=== PATIENT | male | born 1980 | race Caucasian/White ===

== ENCOUNTER 2017-09-09 20:24 | Inpatient (IN) | payer OTHER ==
[~2017-09-09] VITALS: Ht 190.5 cm; Wt 128.0 kg
[~2017-09-09 20:24] MED LIST: ENAL20TA81 PO; LOMO PO; LORT5TAB PO; PROM25SU8 PO
[2017-09-09 20:26] VITALS: BP 185/106; PULSE 122; RESP 16; TEMP 98.5; O2SAT 98
[2017-09-09] MEDS ORDERED: SODIUM CHLOR 0.9% 1000 ML INJ 1,000 ML IV SCH (20:49)
[2017-09-09] MEDS ORDERED: MORPHINE SULFATE 4 MG/ML INJ IV PUSH ONE (21:00)
[2017-09-09] MEDS ORDERED: ONDANSETRON HCL 4 MG/2 ML VIAL IVP ONE (21:00)
[2017-09-09] MEDS ORDERED: SODIUM CHLORIDE 0.9% FLUSH 10 ML FLUSH IV FLUSH PRN (21:00)
--- NOTE | 2017-09-09 21:00 | PD ---
HPI Chief Complaint: Abdominal Pain Time Seen by Provider: 20:40 Travel History International Travel<30 days: No Contact w/Intl Traveler<30days: No Traveled to known affect area: No History of Present Illness HPI Patient is a 37 year old male who was sent to the ER for evaluation of post-op Day #1 fever/abdominal pains. Patient reports that he had an elective cholecystectomy yesterday by Dr. Cuevas around 9:30 AM yesterday. Patient reports that he was intubated for this procedure, reports that the only complication was that his gallbladder adhere to his liver. Reports that this procedure was performed laparoscopically. Patient reports that he went home after his procedures and felt fine. He reports that this afternoon around 1 PM , he took a shower and began to have flulike symptoms. Patient reports that he began to have right upper quadrant abdominal pain which we to his right shoulder , reports that he develop fevers around 6:30 PM today, reports that his MAXIMUM TEMPERATURE was 102. Patient did call his surgeon, he reviewed this case with Dr. Mendoza who is on-call for Dr. cuevas, recommended the patient come to the emergency room for evaluation. Patient reports that he did take Tylenol around 6:30 PM tonight for his fever. Patient at this time reports no chest pain or shortness of breath, patient reports increased pains to his right upper quadrant. Patient reports no nausea or vomiting with abdominal pain. Patient reports that he was able to have a bowel movement today. PFSH Past Medical History Diabetes: No Diminished Hearing: No Hypertension: Yes Past Surgical History Cholecystectomy: Yes Social History Alcohol Use: No Tobacco Use: No Substance Use: No Allergies-Medications (Allergen,Severity, Reaction): Coded Allergies: azithromycin (Unverified Allergy, Severe, Rash, 09/09/17) penicillin G (Unverified Allergy, Severe, 09/09/17) Reported Meds & Prescriptions Reported Meds & Active Scripts Active Review of Systems General / Constitutional: Positive: Fever Eyes: No: Visual changes HENT: No: Headaches Cardiovascular: No: Chest Pain or Discomfort Respiratory: No: Shortness of Breath Gastrointestinal: Positive: Abdominal Pain, No: Nausea, Vomiting, Diarrhea, Constipation Genitourinary: No: Dysuria Musculoskeletal: No: Pain Skin: No Rash Neurologic: No: Weakness Psychiatric: No: Depression Endocrine: No: Polydipsia Hematologic/Lymphatic: No: Easy Bruising Physical Exam Narrative GENERAL: moderate distress SKIN: Focused skin assessment warm/dry. HEAD: Atraumatic. Normocephalic. EYES: Pupils equal and round. No scleral icterus. No injection or drainage. ENT: No nasal bleeding or discharge. Mucous membranes pink and moist. NECK: Trachea midline. No JVD. CARDIOVASCULAR: Tachycardia. No murmur appreciated. RESPIRATORY: No accessory muscle use. Clear to auscultation. Breath sounds equal bilaterally. GASTROINTESTINAL: Abdomen soft, increased tenderness to RUQ with guarding on exam. MUSCULOSKELETAL: No obvious deformities. No clubbing. No cyanosis. No edema. NEUROLOGICAL: Awake and alert. No obvious cranial nerve deficits. Motor grossly within normal limits. Normal speech. PSYCHIATRIC: Appropriate mood and affect; insight and judgment normal. Data Data Last Documented VS Vital Signs Date Time Temp Pulse Resp B/P (MAP) Pulse Ox O2 Delivery O2 Flow Rate FiO2 09/09/17 22:44 101 16 144/76 (98) 98 Room Air 09/09/17 20:26 98.5 Orders Orders Complete Blood Count With Diff (09/09/17 20:49) Comprehensive Metabolic Panel (09/09/17 20:49) Lipase (09/09/17 20:49) Prothrombin Time / Inr (Pt) (09/09/17 20:49) Act Partial Throm Time (Ptt) (09/09/17 20:49) Urinalysis - C+S If Indicated (09/09/17 20:49) Ct Abd/Pel W Iv Contrast(Rout) (09/09/17 20:49) Iv Access Insert/Monitor (09/09/17 20:49) Ecg Monitoring (09/09/17 20:49) Oximetry (09/09/17 20:49) Morphine Inj (Morphine Inj) (09/09/17 21:00) Ondansetron Inj (Zofran Inj) (09/09/17 21:00) Sodium Chlor 0.9% 1000 Ml Inj (Ns 1000 M (09/09/17 20:49) Sodium Chloride 0.9% Flush (Ns Flush) (09/09/17 21:00) Chest, Single Ap (09/09/17 20:49) Lactic Acid Sepsis Protocol (09/09/17 20:49) Influenzae A/B Antigen (09/09/17 20:49) Blood Culture (09/09/17 20:49) Vancomycin Inj (Vancomycin Inj) (09/09/17 22:30) Aztreonam Inj (Azactam Inj) (09/09/17 22:30) Metronidazole 500 Mg Inj (Flagyl 500 Mg (09/09/17 22:30) Iohexol 350 Inj (Omnipaque 350 Inj) (09/09/17 23:07) Labs Laboratory Tests Test 09/09/17 21:10 09/09/17 22:45 White Blood Count 18.5 TH/MM3 Red Blood Count 5.16 MIL/MM3 Hemoglobin 14.9 GM/DL Hematocrit 44.9 % Mean Corpuscular Volume 87.1 FL Mean Corpuscular Hemoglobin 28.9 PG Mean Corpuscular Hemoglobin Concent 33.2 % Red Cell Distribution Width 13.5 % Platelet Count 280 TH/MM3 Mean Platelet Volume 10.3 FL Neutrophils (%) (Auto) 77.1 % Lymphocytes (%) (Auto) 11.8 % Monocytes (%) (Auto) 10.3 % Eosinophils (%) (Auto) 0.4 % Basophils (%) (Auto) 0.4 % Neutrophils # (Auto) 14.3 TH/MM3 Lymphocytes # (Auto) 2.2 TH/MM3 Monocytes # (Auto) 1.9 TH/MM3 Eosinophils # (Auto) 0.1 TH/MM3 Basophils # (Auto) 0.1 TH/MM3 CBC Comment DIFF FINAL Differential Comment Prothrombin Time 10.7 SEC Prothromb Time International Ratio 1.0 RATIO Activated Partial Thromboplast Time 30.0 SEC Blood Urea Nitrogen 18 MG/DL Creatinine 1.03 MG/DL Random Glucose 131 MG/DL Total Protein 8.2 GM/DL Albumin 3.5 GM/DL Calcium Level 9.0 MG/DL Alkaline Phosphatase 95 U/L Aspartate Amino Transf (AST/SGOT) 38 U/L Alanine Aminotransferase (ALT/SGPT) 60 U/L Total Bilirubin 0.5 MG/DL Sodium Level 138 MEQ/L Potassium Level 3.6 MEQ/L Chloride Level 102 MEQ/L Carbon Dioxide Level 26.4 MEQ/L Anion Gap 10 MEQ/L Estimat Glomerular Filtration Rate 80 ML/MIN Lactic Acid Level 2.1 mmol/L Lipase 108 U/L Urine Color LIGHT-YELLOW Urine Turbidity CLEAR Urine pH 6.0 Urine Specific [place] 1.019 Urine Protein NEG mg/dL Urine Glucose (UA) NEG mg/dL Urine Ketones NEG mg/dL Urine Occult Blood TRACE Urine Nitrite NEG Urine Bilirubin NEG Urine Urobilinogen LESS THAN 2.0 MG/DL Urine Leukocyte Esterase NEG Urine RBC 1 /hpf Urine WBC LESS THAN 1 /hpf Urine Squamous Epithelial Cells <1 /hpf Urine Mucus FEW /lpf Microscopic Urinalysis Comment CULT NOT INDICATED MDM Medical Decision Making Medical Screen Exam Complete: Yes Emergency Medical Condition: Yes Medical Record Reviewed: Yes Interpretation(s) Vital Signs Date Time Temp Pulse Resp B/P (MAP) Pulse Ox O2 Delivery O2 Flow Rate FiO2 09/09/17 20:26 98.5 122 16 185/106 (132) 98 Room Air Differential Diagnosis retained gallstones, post op pain, abscess Narrative Course Patient was tachycardic with a heart rate of 122, patient reports a temperature of 102 at 6:30 PM, he did take Tylenol, with SIRS criteria. Lab work including lactate and blood cultures ordered. CT of the abdomen and pelvis with IV contrast ordered to further evaluate abdominal pain. Will administer IVF as well as morphine for pain. 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 Vital Signs Date Time Temp Pulse Resp B/P (MAP) Pulse Ox O2 Delivery O2 Flow Rate FiO2 09/09/17 22:44 101 16 144/76 (98) 98 Room Air 09/09/17 21:22 113 16 98 Room Air 09/09/17 20:26 98.5 122 16 185/106 (132) 98 Room Air Laboratory Tests Test 09/09/17 21:10 09/09/17 22:45 White Blood Count 18.5 TH/MM3 (4.0-11.0) Red Blood Count 5.16 MIL/MM3 (4.50-5.90) Hemoglobin 14.9 GM/DL (13.0-17.0) Hematocrit 44.9 % (39.0-51.0) Mean Corpuscular Volume 87.1 FL (80.0-100.0) Mean Corpuscular Hemoglobin 28.9 PG (27.0-34.0) Mean Corpuscular Hemoglobin Concent 33.2 % (32.0-36.0) Red Cell Distribution Width 13.5 % (11.6-17.2) Platelet Count 280 TH/MM3 (150-450) Mean Platelet Volume 10.3 FL (7.0-11.0) Neutrophils (%) (Auto) 77.1 % (16.0-70.0) Lymphocytes (%) (Auto) 11.8 % (9.0-44.0) Monocytes (%) (Auto) 10.3 % (0.0-8.0) Eosinophils (%) (Auto) 0.4 % (0.0-4.0) Basophils (%) (Auto) 0.4 % (0.0-2.0) Neutrophils # (Auto) 14.3 TH/MM3 (1.8-7.7) Lymphocytes # (Auto) 2.2 TH/MM3 (1.0-4.8) Monocytes # (Auto) 1.9 TH/MM3 (0-0.9) Eosinophils # (Auto) 0.1 TH/MM3 (0-0.4) Basophils # (Auto) 0.1 TH/MM3 (0-0.2) CBC Comment DIFF FINAL Differential Comment Prothrombin Time 10.7 SEC (9.8-11.6) Prothromb Time International Ratio 1.0 RATIO Activated Partial Thromboplast Time 30.0 SEC (24.3-30.1) Blood Urea Nitrogen 18 MG/DL (7-18) Creatinine 1.03 MG/DL (0.60-1.30) Random Glucose 131 MG/DL (74-106) Total Protein 8.2 GM/DL (6.4-8.2) Albumin 3.5 GM/DL (3.4-5.0) Calcium Level 9.0 MG/DL (8.5-10.1) Alkaline Phosphatase 95 U/L (45-117) Aspartate Amino Transf (AST/SGOT) 38 U/L (15-37) Alanine Aminotransferase (ALT/SGPT) 60 U/L (12-78) Total Bilirubin 0.5 MG/DL (0.2-1.0) Sodium Level 138 MEQ/L (136-145) Potassium Level 3.6 MEQ/L (3.5-5.1) Chloride Level 102 MEQ/L (98-107) Carbon Dioxide Level 26.4 MEQ/L (21.0-32.0) Anion Gap 10 MEQ/L (5-15) Estimat Glomerular Filtration Rate 80 ML/MIN (>89) Lactic Acid Level 2.1 mmol/L (0.4-2.0) Lipase 108 U/L (73-393) Urine Color LIGHT-YELLOW (YELLW/STRAW) Urine Turbidity CLEAR (CLEAR) Urine pH 6.0 (5.0-8.5) Urine Specific [place] 1.019 (1.002-1.035) Urine Protein NEG mg/dL (NEG-TRACE) Urine Glucose (UA) NEG mg/dL (NEG) Urine Ketones NEG mg/dL (NEG) Urine Occult Blood TRACE (NEG) Urine Nitrite NEG (NEG) Urine Bilirubin NEG (NEG) Urine Urobilinogen LESS THAN 2.0 MG/DL (LESS Urine Leukocyte Esterase NEG (NEG) Urine RBC 1 /hpf (0-3) Urine WBC LESS THAN 1 /hpf (0-5) Urine Squamous Epithelial Cells <1 /hpf (0-5) Urine Mucus FEW /lpf (OCC) Microscopic Urinalysis Comment CULT NOT INDICATED Last Impressions Chest X-Ray 09/09/[id number] Signed Impressions: Service Date/Time: Saturday, September 09, 2017 20:57 - CONCLUSION: The lungs are clear. No evidence of free intraperitoneal gas on this upright portable exam. Dimas Duran MD Abdomen/Pelvis CT 09/09/172048 Signed Impressions: Service Date/Time: Saturday, September 09, 2017 22:54 - CONCLUSION: 1. Mild edema/fat stranding in the right upper quadrant, nonspecific but duodenitis would be in the differential. Focal colitis of the hepatic flexure possible but I don't really see any wall thickening of the colon to fully substantiate this. 2. Mild atelectasis of both lung bases. 3. Otherwise essentially normal. Patient has had previous cholecystectomy and possible appendectomy. Small cysts of the kidneys are incidentally noted. Patrice Kendall MD Patient with duodenitis, case reviewed with Dr. Mendoza, request admission to medicine service Case reviewed with Dr. Chacon who accepts pt to service under Dr. Fleming Diagnosis Primary Impression: Acute duodenitis Additional Impression: Sepsis Admitting Information Admitting Physician Requests: Admit Mary Becker DO Sep 09, 2017 21:00
--- NOTE | 2017-09-09 21:11 | RADRPT ---
EXAM DATE/TIME: 09/09/2017 20:57 [facility] COMPARISON: No previous studies available for comparison. INDICATIONS : For free air. Cholecystectomy yesterday. Running a fever, shortness of breath today. MEDICAL HISTORY : None. SURGICAL HISTORY : Cholecystectomy. ENCOUNTER: Initial ACUITY: 1 day PAIN SCORE: 2/10 LOCATION: Bilateral chest FINDINGS: A single upright portable view of the chest demonstrates the lungs to be symmetrically aerated withou t evidence of mass, infiltrate or effusion. The cardiomediastinal contours are unremarkable. Osseou s structures are intact. CONCLUSION: The lungs are clear. No evidence of free intraperitoneal gas on this upright portable exam. Dimas Duran MD on September 09, 2017 at 21:09 Board Certified Radiologist. This report was verified electronically.
[2017-09-09 21:22] VITALS: PULSE 113; RESP 16; O2SAT 98
[2017-09-09 21:32] LABS: AUTOMATED NEUTROPHIL # 14.3 TH/MM3 (1.8-7.7); BASOPHIL # 0.1 TH/MM3 (0-0.2); BASOPHIL % 0.4 % (0.0-2.0); EOSINOPHIL # 0.1 TH/MM3 (0-0.4); EOSINOPHIL % 0.4 % (0.0-4.0); HEMATOCRIT 44.9 % (39.0-51.0); HEMO FLAGS DIFF FINAL; LYMPH % 11.8 % (9.0-44.0); LYMPHOCYTE # 2.2 TH/MM3 (1.0-4.8); MEAN CELL VOLUME 87.1 FL (80.0-100.0); MEAN CORPUSCULAR HEMOGLOBIN 28.9 PG (27.0-34.0); MEAN CORPUSCULAR HGB CONC 33.2 % (32.0-36.0); MONO % 10.3 % (0.0-8.0); NEUT % 77.1 % (16.0-70.0); PLATELET COUNT 280 TH/MM3 (150-450); RED BLOOD COUNT 5.16 MIL/MM3 (4.50-5.90); RED CELL DISTRIBUTION WIDTH 13.5 % (11.6-17.2); WHITE BLOOD COUNT 18.5 TH/MM3 (4.0-11.0)
[2017-09-09 21:40] LABS: PROTHROMBIN TIME - PATIENT 10.7 SEC (9.8-11.6)
[2017-09-09 22:00] LABS: ALKALINE PHOSPHATASE 95 U/L (45-117); ALT (GPT) 60 U/L (12-78); TOTAL BILIRUBIN ADULT 0.5 MG/DL (0.2-1.0)
[2017-09-09 22:01] LABS: ANION GAP 10 MEQ/L (5-15); AST (GOT) 38 U/L (15-37); BICARBONATE 26.4 MEQ/L (21.0-32.0); BLOOD UREA NITROGEN 18 MG/DL (7-18); CHLORIDE 102 MEQ/L (98-107); GLOMERULAR FILTRATION RATE 80 ML/MIN (>89); POTASSIUM 3.6 MEQ/L (3.5-5.1); SODIUM (NA) 138 MEQ/L (136-145)
[2017-09-09] MEDS ORDERED: metroNIDAZOLE 500 MG INJ 100 ML IV STA (22:30)
[2017-09-09] MEDS ORDERED: AZTREONAM INJ 2,000 MG in SODIUM CHLORIDE 0.9% INJ 100 ML IV STA (22:30)
[2017-09-09] MEDS ORDERED: VANCOMYCIN INJ 1,000 MG in SODIUM CHLOR 0.9% 250 ML INJ 250 ML IV STA (22:30)
[2017-09-09 22:44] VITALS: BP 144/76; PULSE 101; RESP 16; O2SAT 98
[2017-09-09] MEDS ORDERED: IOHEXOL 350 MG/ML 10 ML VIAL (for RAD DIAG) IVCONTRAST ONE (23:07)
--- NOTE | 2017-09-09 23:18 | RADRPT ---
EXAM DATE/TIME: 09/09/2017 22:54 [facility] COMPARISON: CHEST SINGLE AP, September 09, 2017, 20:57. INDICATIONS : Bilateral lower quadrant pain. IV CONTRAST: 95 cc Omnipaque 350 (iohexol) IV ORAL CONTRAST: No oral contrast ingested. RADIATION DOSE: 20.45 CTDIvol (mGy) MEDICAL HISTORY : Hypertension. SURGICAL HISTORY : None. ENCOUNTER: Initial ACUITY: 1 week PAIN SCALE: 4/10 LOCATION: Bilateral lower quadrant TECHNIQUE: Volumetric scanning of the abdomen and pelvis was performed. Using automated exposure control and ad justment of the mA and/or kV according to patient size, radiation dose was kept as low as reasonably achievable to obtain optimal diagnostic quality images. DICOM format image data is available electro nically for review and comparison. FINDINGS: Patient has had previous cholecystectomy. I also don't clearly see the appendix. Mild edema seen near the gallbladder fossa and close to the duodenum and also the hepatic flexure of the colon. I would f avor duodenitis over colitis. Liver is slightly fatty infiltrated. No focal hepatic lesion. Spleen, pancreas and adrenal glands are normal. A few small cysts are seen in both kidneys. No stones or hydronephrosis. Trace atelectasis seen of the visualized lung bases. No acute bony abnormality demonstrated. CONCLUSION: 1. Mild edema/fat stranding in the right upper quadrant, nonspecific but duodenitis would be in the d ifferential. Focal colitis of the hepatic flexure possible but I don't really see any wall thickening of the colon to fully substantiate this. 2. Mild atelectasis of both lung bases. 3. Otherwise essentially normal. Patient has had previous cholecystectomy and possible appendectomy. Small cysts of the kidneys are incidentally noted. Patrice Kendall MD on September 09, 2017 at 23:10 Board Certified Radiologist. This report was verified electronically.
[2017-09-09 23:21] LABS: LACTIC ACID GHOST NOT REPORTABLE
[2017-09-09 23:22] LABS: BLOOD, URINE TRACE (NEG); COMMENT (UR) CULT NOT INDICATED; CULTURE IF INDICATED CULT NOT INDICATED; GLUCOSE,URINE NEG (NEG); KETONE, URINE NEG (NEG); MUCUS URINE FEW /lpf (OCC); NITRITE,URINE NEG (NEG); SQUAMOUS EPITHELIAL CELL URINE <1 /hpf (0-5); URINE COLOR LIGHT-YELLOW (YELLW/STRAW)
[2017-09-09] MEDS ORDERED: NALOXONE HCL 0.4 MG/ML AMP IV PUSH PRN (23:45)
[2017-09-09] MEDS ORDERED: MORPHINE SULFATE 4 MG/ML INJ IV PUSH PRN ×2 (23:45)
[2017-09-09] MEDS: SODIUM CHLOR 0.9% 1000 ML INJ 1,000 ML IV SCH (23:45)
[2017-09-09] MEDS ORDERED: Vancomycin Consult Pharmacy 1 EA OTHER SCH (23:45)
[2017-09-10] VITALS (9 sets, daily range): BP systolic 91–152; BP diastolic 80–97; PULSE 82–107; RESP 17–20; TEMP 97.2–100.6; O2SAT 95–97
[2017-09-10] MEDS ORDERED: metroNIDAZOLE 500 MG INJ 100 ML IV SCH
[2017-09-10] MEDS ORDERED: HYDR25TA5 PO (00:29)
[2017-09-10] MEDS ORDERED: AMLO5TAB2 PO (00:29)
[2017-09-10] MEDS ORDERED: BENA40TA PO (00:29)
[2017-09-10] MEDS ORDERED: KETOROLAC TROMETHAMINE 30 MG/ML (IVP) VIAL IV PUSH ONE (00:30)
[2017-09-10] MEDS ORDERED: VANCOMYCIN 1,500 MG/NS 500 ML IV SCH ×2 (01:00)
[2017-09-10] MEDS: AZTREONAM INJ 2,000 MG in SODIUM CHLORIDE 0.9% INJ 100 ML IV SCH ×3 (06:09→22:12)
[2017-09-10 07:52] LABS: AUTOMATED NEUTROPHIL # 11.7 TH/MM3 (1.8-7.7); BASOPHIL # 0.1 TH/MM3 (0-0.2); BASOPHIL % 0.5 % (0.0-2.0); EOSINOPHIL # 0.1 TH/MM3 (0-0.4); EOSINOPHIL % 0.5 % (0.0-4.0); HEMATOCRIT 40.5 % (39.0-51.0); HEMO FLAGS DIFF FINAL; LYMPH % 8.8 % (9.0-44.0); LYMPHOCYTE # 1.3 TH/MM3 (1.0-4.8); MEAN CELL VOLUME 88.1 FL (80.0-100.0); MEAN CORPUSCULAR HEMOGLOBIN 29.3 PG (27.0-34.0); MEAN CORPUSCULAR HGB CONC 33.3 % (32.0-36.0); MONO % 12.2 % (0.0-8.0); PLATELET COUNT 224 TH/MM3 (150-450); RED CELL DISTRIBUTION WIDTH 13.7 % (11.6-17.2); WHITE BLOOD COUNT 15.1 TH/MM3 (4.0-11.0)
[2017-09-10] MEDS: metroNIDAZOLE 500 MG INJ 100 ML IV SCH ×2 (07:57→16:04)
[2017-09-10] MEDS: SODIUM CHLOR 0.9% 1000 ML INJ 1,000 ML IV SCH ×2 (07:59→14:30)
[2017-09-10 08:19] LABS: BICARBONATE 25.6 MEQ/L (21.0-32.0); POTASSIUM 3.6 MEQ/L (3.5-5.1)
[2017-09-10] MEDS ORDERED: INFLUENZA VIRUS VACCINE (QUADRIVALENT) 0.5 ML SYR IM ONE (09:00)
--- NOTE | 2017-09-10 10:47 | HHI.HP ---
HPI Service CP Hospitalists Primary Care Physician No Primary Care Physician Admission Diagnosis Duodenitis, Sepsis Chief Complaint: RUQ abd pain and fever 102 degrees Travel History International Travel<30 Days: No Contact w/Intl Traveler <30 Da: No Traveled to Known Affected Are: No History of Present Illness This is a 37 year old male with a past medical history which includes HTN. Patient had an elective cholecystectomy 09/08/[address] Munroe. Patient reports that he went home after his procedures and felt fine. He reports that 09/09/17 around 1 PM, he took a shower and began to havefevers chills and right shoulder pain. Patient reports that he began he had right upper quadrant abdominal pain which we to his right shoulder, reports that he develop fevers around 6:30 PM 09/09/17, MAXIMUM TEMPERATURE at home was 102, which improved with acetaminophen. Patient did call his surgeon, Dr. Mendoza was covering for Dr. Munroe, recommended the patient come to the emergency room for evaluation. Patient denies chest pain, nausea, vomiting or shortness of breath furthering this episode. Patient reports his is feeling much better today. Patient no longer having fever, chills or pain. Patient reports he continues to have as ore throat and chest congestion. Patient denies productive cough or shortness of breath. Review of Systems Constitutional: COMPLAINS OF: Fever, Chills, DENIES: Fatigue Eyes: DENIES: Diplopia, Eye pain, Double Vision Respiratory: DENIES: Cough, Sputum production, Shortness of breath Cardiovascular: DENIES: Chest pain, Palpitations, Lower Extremity Edema Gastrointestinal: COMPLAINS OF: Abdominal pain, Nausea Neurologic: DENIES: Abnormal gait, Headache, Localized weakness Psychiatric: DENIES: Anxiety, Confusion, Depression Past Family Social History Past Medical History HTN Past Surgical History cholecystectomy 09/07/[address] Munroe Reported Medications Hydrochlorothiazide 25 Mg Tab 25 Mg PO DAILY Benazepril (Benazepril HCl) 40 Mg Tab 40 Mg PO DAILY Amlodipine (Amlodipine Besylate) 5 Mg Tab 5 Mg PO DAILY Allergies: Coded Allergies: azithromycin (Unverified Allergy, Severe, Rash, 09/09/17) penicillin G (Unverified Allergy, Severe, 09/09/17) Sulfa (Sulfonamide Antibiotics) (Verified Allergy, Unknown, Rash, 09/10/17 ) Active Ordered Medications Current Medications Medications (Trade) Dose Ordered Sig/Zeke Route Start Time Stop Time Status Last Admin (NS Flush) 2 ml UNSCH PRN IV FLUSH 09/09/17 21:00 Sodium Chloride 1,000 ml @ 100 mls/hr Q10H IV 09/09/17 23:45 09/10/17 07:59 Aztreonam 2000 mg/ Sodium Chloride 100 ml @ 200 mls/hr Q8H IV 09/10/17 06:00 09/10/17 06:09 Pharmacy Profile Note 0 ml @ 0 mls/hr UNSCH OTHER 09/09/17 23:45 (Tylenol) 650 mg Q6HR PRN PO 09/09/17 23:45 (Morphine Inj) 2 mg Q3H PRN IV PUSH 09/09/17 23:45 (Morphine Inj) 4 mg Q3H PRN IV PUSH 09/09/17 23:45 (Narcan Inj) 0.4 mg UNSCH PRN IV PUSH 09/09/17 23:45 Metronidazole 100 ml @ 100 mls/hr Q8H IV 09/10/17 09:00 09/10/17 07:57 Family History noncontributory Social History Denies ETOH, tobacco use, illicit drug use Physical Exam Vital Signs Vital Signs Date Time Temp Pulse Resp B/P (MAP) Pulse Ox O2 Delivery O2 Flow Rate FiO2 09/10/17 08:00 98.7 100 17 136/88 (104) 97 09/10/17 04:00 97.2 98 18 128/84 (99) 95 09/10/17 01:54 18 09/10/17 01:46 96 09/10/17 01:24 99.3 106 20 130/80 (97) 96 09/10/17 00:41 09/09/17 22:44 101 16 144/76 (98) 98 Room Air 09/09/17 21:22 113 16 98 Room Air 09/09/17 20:26 98.5 122 16 185/106 (132) 98 Room Air Physical Exam GENERAL: This is a well-nourished, well-developed patient, in no apparent distress. SKIN: healing laparoscopic incisions steri strips intact no erythema or discharge EYES: Extraocular motions intact. No scleral icterus. No injection or drainage. CARDIOVASCULAR: Regular rate and rhythm RESPIRATORY: Clear to auscultation. Breath sounds equal bilaterally. GASTROINTESTINAL: Abdomen soft, nondistended. Tender to palpation RUQ MUSCULOSKELETAL: Extremities without clubbing, cyanosis, or edema. No joint tenderness, effusion, or edema noted. No calf tenderness. Negative Homans sign bilaterally. NEUROLOGICAL: Awake and alert. No focal deficits noted. Motor and sensory grossly within normal limits. Five out of 5 muscle strength in all muscle groups. Normal speech. Laboratory Laboratory Tests Test 09/09/17 21:10 09/09/17 22:45 09/09/17 23:59 09/10/17 07:00 White Blood Count 18.5 15.1 Red Blood Count 5.16 4.60 Hemoglobin 14.9 13.5 Hematocrit 44.9 40.5 Mean Corpuscular Volume 87.1 88.1 Mean Corpuscular Hemoglobin 28.9 29.3 Mean Corpuscular Hemoglobin Concent 33.2 33.3 Red Cell Distribution Width 13.5 13.7 Platelet Count 280 224 Mean Platelet Volume 10.3 10.4 Neutrophils (%) (Auto) 77.1 78.0 Lymphocytes (%) (Auto) 11.8 8.8 Monocytes (%) (Auto) 10.3 12.2 Eosinophils (%) (Auto) 0.4 0.5 Basophils (%) (Auto) 0.4 0.5 Neutrophils # (Auto) 14.3 11.7 Lymphocytes # (Auto) 2.2 1.3 Monocytes # (Auto) 1.9 1.8 Eosinophils # (Auto) 0.1 0.1 Basophils # (Auto) 0.1 0.1 CBC Comment DIFF FINAL DIFF FINAL Differential Comment Prothrombin Time 10.7 Prothromb Time International Ratio 1.0 Activated Partial Thromboplast Time 30.0 Blood Urea Nitrogen 18 12 Creatinine 1.03 0.75 Random Glucose 131 116 Total Protein 8.2 Albumin 3.5 Calcium Level 9.0 8.4 Alkaline Phosphatase 95 Aspartate Amino Transf (AST/SGOT) 38 Alanine Aminotransferase (ALT/SGPT) 60 Total Bilirubin 0.5 Sodium Level 138 139 Potassium Level 3.6 3.6 Chloride Level 102 104 Carbon Dioxide Level 26.4 25.6 Anion Gap 10 9 Estimat Glomerular Filtration Rate 80 116 Lactic Acid Level 2.1 2.0 Lipase 108 Urine Color LIGHT-YELLOW Urine Turbidity CLEAR Urine pH 6.0 Urine Specific [place] 1.019 Urine Protein NEG Urine Glucose (UA) NEG Urine Ketones NEG Urine Occult Blood TRACE Urine Nitrite NEG Urine Bilirubin NEG Urine Urobilinogen LESS THAN 2.0 Urine Leukocyte Esterase NEG Urine RBC 1 Urine WBC LESS THAN 1 Urine Squamous Epithelial Cells <1 Urine Mucus FEW Microscopic Urinalysis Comment CULT NOT INDICATED Date/Time Source Procedure Growth Status 09/09/17 21:10 Blood Peripheral Aerobic Blood Culture Pending Received 09/09/17 21:10 Blood Peripheral Anaerobic Blood Culture Pending Received 09/09/17 21:10 Nasal Aspirate Influenza Types A,B Antigen (JEREMI) - Final NEGATIVE FOR FLU A AND B ANTIGEN.... Complete Result Diagram: 09/10/17 0700 09/10/17 07 Imaging Last Impressions Chest X-Ray 09/09/[id number] Signed Impressions: Service Date/Time: Saturday, September 09, 2017 20:57 - CONCLUSION: The lungs are clear. No evidence of free intraperitoneal gas on this upright portable exam. Dimas Duran MD Abdomen/Pelvis CT [id number]/09/172048 Signed Impressions: Service Date/Time: Saturday, September 09, 2017 22:54 - CONCLUSION: 1. Mild edema/fat stranding in the right upper quadrant, nonspecific but duodenitis would be in the differential. Focal colitis of the hepatic flexure possible but I don't really see any wall thickening of the colon to fully substantiate this. 2. Mild atelectasis of both lung bases. 3. Otherwise essentially normal. Patient has had previous cholecystectomy and possible appendectomy. Small cysts of the kidneys are incidentally noted. MD Brayan Becketti VTE Risk Assessment Caprini VTE Risk Assessment: No/Low Risk (score <= 1) Caprini Risk Assessment Model Point Value = 1 Point Value = 2 Point Value = 3 Point Value = 5 Age 41-60 Minor surgery BMI > 25 kg/m2 Swollen legs Varicose veins or History of unexplained or recurrent spontaneous Oral contraceptives or hormone replacement Sepsis (< 1 month) Serious lung disease, including pneumonia (< 1 month) Abnormal pulmonary function Acute myocardial infarction Congestive heart failure (< 1 month) History of inflammatory bowel disease Medical patient at bed rest Age 61-74 Arthroscopic surgery Major open surgery (> 45 min) Laparoscopic surgery (> 45 min) Malignancy Confined to bed (> 72 hours) Immobilizing plaster cast Central venous access Age >= 75 History of VTE Family history of VTE Factor V Leiden Prothrombin [id number] Lupus anticoagulant Anticardiolipin antibodies Elevated serum homocysteine Heparin-induced thrombocytopenia Other congenital or acquired thrombophilia Stroke (< 1 month) Elective arthroplasty Hip, pelvis, or leg fracture Acute spinal cord injury (< 1 month) Prophylaxis Regimen Total Risk Factor Score Risk Level Prophylaxis Regimen 0-1 Low Early ambulation 2 Moderate Order ONE of the following: *Sequential Compression Device (SCD) *Heparin 5000 units SQ BID 3-4 Higher Order ONE of the following medications: *Heparin 5000 units SQ TID *Enoxaparin/Lovenox 40 mg SQ daily (WT < 150 kg, CrCl > 30 mL/min) *Enoxaparin/Lovenox 30 mg SQ daily (WT < 150 kg, CrCl > 10-29 mL/min) *Enoxaparin/Lovenox 30 mg SQ BID (WT < 150 kg, CrCl > 30 mL/min) AND/OR *Sequential Compression Device (SCD) 5 or more Highest Order ONE of the following medications: *Heparin 5000 units SQ TID (Preferred with Epidurals) *Enoxaparin/Lovenox 40 mg SQ daily (WT < 150 kg, CrCl > 30 mL/min) *Enoxaparin/Lovenox 30 mg SQ daily (WT < 150 kg, CrCl > 10-29 mL/min) *Enoxaparin/Lovenox 30 mg SQ BID (WT < 150 kg, CrCl > 30 mL/min) AND *Sequential Compression Device (SCD) Assessment and Plan Problem List: (1) Fever ICD Codes: R50.9 - Fever, unspecified Plan: Fever with abdominal pain s/p cholecystectomy 09/07/[address] Munroe -WBC 18.5 (09/09) -> 15.1 (09/10) -Patient given Aztreonam, Metronidazole and Vancomycin in ER -Will DC Vancomycin -possible post op fever possible infection continue Aztreonam and Metronidazole -consult general surgery -repeat CBC in AM -Abdomen/Pelvic reviewed and reveals: Mild edema/fat stranding in the right upper quadrant, nonspecific but duodenitis would be in the differential. Focal colitis of the hepatic flexure possible. Mild atelectasis of both lung bases. Previous cholecystectomy and possible appendectomy. Small cysts of the kidneys are incidentally noted. -CXR reviewed and reveals no acute cardiopulmonary process -BC pending HTN -continue home amlodipine 5 mg daily, Benazepril 40 mg daily -will hold HCTZ -add Vasotec PRN -monitor BP trend DVT prophylaxis with SCDs If patient remains stable plan to DC in 1-2 days (2) Abdominal pain ICD Codes: R10.9 - Unspecified abdominal pain (3) HTN (hypertension) ICD Codes: I10 - Essential (primary) hypertension Assessment and Plan Patient examined. Assessment and plan formulated with Deborah Brock PA-C. I agree with the above. Pt states that he was having chills and fever yesterday prompting him to come the ER. Pt states that he is much more comfortable today. Post op fever? CT did NOT clearly identify etiology of pt's fever. Follow blood cultures. Pt with h/o PCN allergy. continue Azactam continue Flagyl Await Surgical consult. Physician Certification 2 Midnight Certification Type: Admission for Inpatient Services Order for Inpatient Services The services are ordered in accordance with Medicare regulations or non- Medicare payer requirements, as applicable. In the case of services not specified as inpatient-only, they are appropriately provided as inpatient services in accordance with the 2-midnight benchmark. Estimated LOS (days): 2 days is the estimated time the patient will need to remain in the hospital, assuming treatment plan goals are met and no additional complications. Post-Hospital Plan: Home Deborah Brock Sep 10, 2017 10:47 Bear Saravia DO Sep 10, 2017 17:53
[2017-09-10] MEDS ORDERED: ENALAPRILAT 1.25 MG/ML VIAL IV PUSH PRN (13:00)
[2017-09-10] MEDS ORDERED: PHENOL 1.4% SOLN 180 ML BTL OROPHARYNG PRN (13:15)
[2017-09-10] MEDS: amLODIPine BESYLATE 5 MG TAB PO SCH (14:22)
[2017-09-10] MEDS: LISINOPRIL 20 MG TAB PO SCH (14:23)
[2017-09-10] MEDS: ACETAMINOPHEN 325 MG TAB PO PRN ×2 (16:04→22:12)
[2017-09-11] MEDS: metroNIDAZOLE 500 MG INJ 100 ML IV SCH ×2 (01:00→08:38)
[2017-09-11] MEDS: SODIUM CHLOR 0.9% 1000 ML INJ 1,000 ML IV SCH (01:01)
[2017-09-11 04:50] VITALS: BP 135/81; PULSE 86; RESP 18; TEMP 97.6; O2SAT 96
[2017-09-11] MEDS: AZTREONAM INJ 2,000 MG in SODIUM CHLORIDE 0.9% INJ 100 ML IV SCH (05:38)
[2017-09-11 06:54] LABS: AUTOMATED NEUTROPHIL # 8.5 TH/MM3 (1.8-7.7); BASOPHIL # 0.1 TH/MM3 (0-0.2); BASOPHIL % 0.5 % (0.0-2.0); EOSINOPHIL # 0.2 TH/MM3 (0-0.4); EOSINOPHIL % 1.6 % (0.0-4.0); HEMATOCRIT 39.9 % (39.0-51.0); HEMO FLAGS DIFF FINAL; LYMPH % 15.1 % (9.0-44.0); LYMPHOCYTE # 1.8 TH/MM3 (1.0-4.8); MEAN CORPUSCULAR HEMOGLOBIN 29.4 PG (27.0-34.0); MEAN CORPUSCULAR HGB CONC 33.4 % (32.0-36.0); MONO % 12.6 % (0.0-8.0); NEUT % 70.2 % (16.0-70.0); PLATELET COUNT 200 TH/MM3 (150-450); RED BLOOD COUNT 4.53 MIL/MM3 (4.50-5.90); RED CELL DISTRIBUTION WIDTH 13.4 % (11.6-17.2); WHITE BLOOD COUNT 12.1 TH/MM3 (4.0-11.0)
[2017-09-11 07:19] LABS: BICARBONATE 26.5 MEQ/L (21.0-32.0); POTASSIUM 3.5 MEQ/L (3.5-5.1)
[2017-09-11] MEDS: amLODIPine BESYLATE 5 MG TAB PO SCH (08:37)
[2017-09-11] MEDS: LISINOPRIL 20 MG TAB PO SCH (08:37)
--- NOTE | 2017-09-11 09:08 | HHI.PR ---
Subjective Remarks t max 100.6 09/10 1600 Patient reports feeling , "much much better." Objective Vitals Vital Signs Date Time Temp Pulse Resp B/P (MAP) Pulse Ox O2 Delivery O2 Flow Rate FiO2 09/11/17 04:50 97.6 86 18 135/81 (99) 96 09/10/17 23:50 100.2 105 18 145/91 (109) 95 09/10/17 20:24 98.1 92 18 142/88 (106) 95 09/10/17 20:07 82 09/10/17 16:00 100.6 107 20 152/97 (115) 96 09/10/17 12:00 98.5 102 20 152/91 (111) 97 Result Diagram: 09/11/17 0609 09/11/17 0609 Other Results Laboratory Tests Test 09/09/17 21:10 09/09/17 22:45 09/09/17 23:59 09/10/17 07:00 White Blood Count 18.5 TH/MM3 15.1 TH/MM3 Red Blood Count 5.16 MIL/MM3 4.60 MIL/MM3 Hemoglobin 14.9 GM/DL 13.5 GM/DL Hematocrit 44.9 % 40.5 % Mean Corpuscular Volume 87.1 FL 88.1 FL Mean Corpuscular Hemoglobin 28.9 PG 29.3 PG Mean Corpuscular Hemoglobin Concent 33.2 % 33.3 % Red Cell Distribution Width 13.5 % 13.7 % Platelet Count 280 TH/MM3 224 TH/MM3 Mean Platelet Volume 10.3 FL 10.4 FL Neutrophils (%) (Auto) 77.1 % 78.0 % Lymphocytes (%) (Auto) 11.8 % 8.8 % Monocytes (%) (Auto) 10.3 % 12.2 % Eosinophils (%) (Auto) 0.4 % 0.5 % Basophils (%) (Auto) 0.4 % 0.5 % Neutrophils # (Auto) 14.3 TH/MM3 11.7 TH/MM3 Lymphocytes # (Auto) 2.2 TH/MM3 1.3 TH/MM3 Monocytes # (Auto) 1.9 TH/MM3 1.8 TH/MM3 Eosinophils # (Auto) 0.1 TH/MM3 0.1 TH/MM3 Basophils # (Auto) 0.1 TH/MM3 0.1 TH/MM3 CBC Comment DIFF FINAL DIFF FINAL Differential Comment Prothrombin Time 10.7 SEC Prothromb Time International Ratio 1.0 RATIO Activated Partial Thromboplast Time 30.0 SEC Blood Urea Nitrogen 18 MG/DL 12 MG/DL Creatinine 1.03 MG/DL 0.75 MG/DL Random Glucose 131 MG/DL 116 MG/DL Total Protein 8.2 GM/DL Albumin 3.5 GM/DL Calcium Level 9.0 MG/DL 8.4 MG/DL Alkaline Phosphatase 95 U/L Aspartate Amino Transf (AST/SGOT) 38 U/L Alanine Aminotransferase (ALT/SGPT) 60 U/L Total Bilirubin 0.5 MG/DL Sodium Level 138 MEQ/L 139 MEQ/L Potassium Level 3.6 MEQ/L 3.6 MEQ/L Chloride Level 102 MEQ/L 104 MEQ/L Carbon Dioxide Level 26.4 MEQ/L 25.6 MEQ/L Anion Gap 10 MEQ/L 9 MEQ/L Estimat Glomerular Filtration Rate 80 ML/MIN 116 ML/MIN Lactic Acid Level 2.1 mmol/L 2.0 mmol/L Lipase 108 U/L Urine Color LIGHT-YELLOW Urine Turbidity CLEAR Urine pH 6.0 Urine Specific [place] 1.019 Urine Protein NEG mg/dL Urine Glucose (UA) NEG mg/dL Urine Ketones NEG mg/dL Urine Occult Blood TRACE Urine Nitrite NEG Urine Bilirubin NEG Urine Urobilinogen LESS THAN 2.0 MG/DL Urine Leukocyte Esterase NEG Urine RBC 1 /hpf Urine WBC LESS THAN 1 /hpf Urine Squamous Epithelial Cells <1 /hpf Urine Mucus FEW /lpf Microscopic Urinalysis Comment CULT NOT INDICATED Test 09/11/17 06:09 White Blood Count 12.1 TH/MM3 Red Blood Count 4.53 MIL/MM3 Hemoglobin 13.3 GM/DL Hematocrit 39.9 % Mean Corpuscular Volume 88.0 FL Mean Corpuscular Hemoglobin 29.4 PG Mean Corpuscular Hemoglobin Concent 33.4 % Red Cell Distribution Width 13.4 % Platelet Count 200 TH/MM3 Mean Platelet Volume 9.9 FL Neutrophils (%) (Auto) 70.2 % Lymphocytes (%) (Auto) 15.1 % Monocytes (%) (Auto) 12.6 % Eosinophils (%) (Auto) 1.6 % Basophils (%) (Auto) 0.5 % Neutrophils # (Auto) 8.5 TH/MM3 Lymphocytes # (Auto) 1.8 TH/MM3 Monocytes # (Auto) 1.5 TH/MM3 Eosinophils # (Auto) 0.2 TH/MM3 Basophils # (Auto) 0.1 TH/MM3 CBC Comment DIFF FINAL Differential Comment Blood Urea Nitrogen 9 MG/DL Creatinine 0.57 MG/DL Random Glucose 100 MG/DL Calcium Level 8.7 MG/DL Magnesium Level 2.0 MG/DL Sodium Level 137 MEQ/L Potassium Level 3.5 MEQ/L Chloride Level 103 MEQ/L Carbon Dioxide Level 26.5 MEQ/L Anion Gap 8 MEQ/L Estimat Glomerular Filtration Rate 159 ML/MIN Imaging Last Impressions Chest X-Ray 09/09/172048 Signed Impressions: Service Date/Time: Saturday, September 09, 2017 20:57 - CONCLUSION: The lungs are clear. No evidence of free intraperitoneal gas on this upright portable exam. Dimas Duran MD Abdomen/Pelvis CT 09/09/172048 Signed Impressions: Service Date/Time: Saturday, September 09, 2017 22:54 - CONCLUSION: 1. Mild edema/fat stranding in the right upper quadrant, nonspecific but duodenitis would be in the differential. Focal colitis of the hepatic flexure possible but I don't really see any wall thickening of the colon to fully substantiate this. 2. Mild atelectasis of both lung bases. 3. Otherwise essentially normal. Patient has had previous cholecystectomy and possible appendectomy. Small cysts of the kidneys are incidentally noted. Patrice Kendall MD Objective Remarks GENERAL: This is a well-nourished, well-developed patient, in no apparent distress. SKIN: healing laparoscopic incisions steri strips intact no erythema or discharge CARDIOVASCULAR: Regular rate and rhythm RESPIRATORY: Clear to auscultation. Breath sounds equal bilaterally. GASTROINTESTINAL: Abdomen soft, nondistended. Tender to palpation RUQ MUSCULOSKELETAL: Extremities without clubbing, cyanosis, or edema. No joint tenderness, effusion, or edema noted. No calf tenderness. Negative Homans sign bilaterally. NEUROLOGICAL: Awake and alert. No focal deficits noted. Motor and sensory grossly within normal limits. Five out of 5 muscle strength in all muscle groups. Normal speech. A/P Problem List: (1) Fever ICD Codes: R50.9 - Fever, unspecified Plan: Fever with abdominal pain s/p cholecystectomy 09/07/[address] Munroe -WBC 18.5 (09/09) -> 15.1 (09/10) ->12.1 (09/11) -Patient given Aztreonam, Metronidazole and Vancomycin in ER -Will DC Vancomycin -possible post op fever possible infection continue Aztreonam and Metronidazole -consult general surgery -Abdomen/Pelvic reviewed and reveals: Mild edema/fat stranding in the right upper quadrant, nonspecific but duodenitis would be in the differential. Focal colitis of the hepatic flexure possible. Mild atelectasis of both lung bases. Previous cholecystectomy and possible appendectomy. Small cysts of the kidneys are incidentally noted. -CXR reviewed and reveals no acute cardiopulmonary process -BC No growth x 2 day - DC IVF, DC telemetry, patient may shower HTN -continue home amlodipine 5 mg daily, Benazepril 40 mg daily -will hold HCTZ -add Vasotec PRN -monitor BP trend DVT prophylaxis with SCDs If patient afebrile plan to DC tomorrow (2) Abdominal pain ICD Codes: R10.9 - Unspecified abdominal pain (3) HTN (hypertension) ICD Codes: I10 - Essential (primary) hypertension Assessment and Plan Patient examined. Assessment and plan formulated with Deborah Brock PA-C. I agree with the above. s/p lap eddie. ruq pain, fever/chills/rigors better. lower grade fever last night. brenda food. blood cx ngtd. ct a/p just some stranding in area of eddie. probably reasonable to keep him on abx for another week after d/c will discuss d/c timing with Deborah Rodriguez Sep 11, 2017 09:08 Gene Hebert MD Sep 11, 2017 11:19
[2017-09-11 10:00] VITALS: BP 137/85; PULSE 81; RESP 18; TEMP 97.7; O2SAT 98
[2017-09-11] MEDS ORDERED: METR-1 PO (11:14)
[2017-09-11] MEDS ORDERED: LEVA500T20 PO (11:14)
[2017-09-11 11:48] VITALS: BP 149/86; PULSE 79; RESP 20; TEMP 98.4; O2SAT 97
[2017-09-11 12:00] VITALS: BP 149/86; PULSE 79; RESP 20; TEMP 98.7; O2SAT 97
--- NOTE | 2017-09-11 13:40 | HHI.PR ---
Subjective Subjective Notes The patient feels great. He has no abdominal complaints whatsoever. He is tolerating regular diet, and states he is ready to go home. Objective Vitals/I&O Vital Signs Date Time Temp Pulse Resp B/P (MAP) Pulse Ox O2 Delivery O2 Flow Rate FiO2 09/11/17 12:00 98.7 79 20 149/86 (107) 97 09/09/17 22:44 Room Air Labs Laboratory Tests Test 09/11/17 06:09 White Blood Count 12.1 Red Blood Count 4.53 Hemoglobin 13.3 Hematocrit 39.9 Mean Corpuscular Volume 88.0 Mean Corpuscular Hemoglobin 29.4 Mean Corpuscular Hemoglobin Concent 33.4 Red Cell Distribution Width 13.4 Platelet Count 200 Mean Platelet Volume 9.9 Neutrophils (%) (Auto) 70.2 Lymphocytes (%) (Auto) 15.1 Monocytes (%) (Auto) 12.6 Eosinophils (%) (Auto) 1.6 Basophils (%) (Auto) 0.5 Neutrophils # (Auto) 8.5 Lymphocytes # (Auto) 1.8 Monocytes # (Auto) 1.5 Eosinophils # (Auto) 0.2 Basophils # (Auto) 0.1 CBC Comment DIFF FINAL Differential Comment Blood Urea Nitrogen 9 Creatinine 0.57 Random Glucose 100 Calcium Level 8.7 Magnesium Level 2.0 Sodium Level 137 Potassium Level 3.5 Chloride Level 103 Carbon Dioxide Level 26.5 Anion Gap 8 Estimat Glomerular Filtration Rate 159 Date/Time Source Procedure Growth Status 09/09/17 21:10 Blood Peripheral Aerobic Blood Culture - Preliminary NO GROWTH IN 2 DAYS Resulted 09/09/17 21:10 Blood Peripheral Anaerobic Blood Culture - Preliminary NO GROWTH IN 2 DAYS Resulted 09/09/17 21:10 Nasal Aspirate Influenza Types A,B Antigen (JEREMI) - Final NEGATIVE FOR FLU A AND B ANTIGEN.... Complete Cardiovascular: Regular Lungs: Clear Abdomen: Non-distended, Non-tender, BS normal Extremities: No edema A/P Assessment and Plan Impression: Postoperative day #3 status post laparoscopic cholecystectomy. His fever is now resolved and I believe it was probably due to atelectasis. He has no other problems at this point. Plan: Patient is clear for discharge and our plan to see him back in the office next Monday as scheduled. Codey Munroe MD Sep 11, 2017 13:40
--- NOTE | 2017-09-11 14:13 | HHI.DCPOC ---
Discharge Care Plan Diagnosis: (1) Fever (2) Abdominal pain (3) HTN (hypertension) Goals to Promote Your Health * To prevent worsening of your condition and complications * To maintain your health at the optimal level Directions to Meet Your Goals Take your medications as prescribed Follow your dietary instruction Follow activity as directed Keep your appointments as scheduled Take your immunizations and boosters as scheduled If your symptoms worsen call your PCP, if no PCP go to Urgent Care Center or Emergency Room Smoking is Dangerous to Your Health. Avoid second hand smoke Call the 24-hour hour crisis hotline for domestic abuse at Deborah Brock Sep 11, 2017 14:13
--- NOTE | 2017-09-11 14:18 | HHI.DS ---
Discharge Summary Admission Date Sep 09, 2017 at 23:30 Discharge Date: Sep 11, 2017 Admitting Diagnosis Post-op fever and abdominal pain (1) Fever ICD Codes: R50.9 - Fever, unspecified (2) Abdominal pain ICD Codes: R10.9 - Unspecified abdominal pain (3) HTN (hypertension) ICD Codes: I10 - Essential (primary) hypertension Consultants Dr. Munroe Procedures Laparoscopic cholecystectomy 09/[address] Munroe Brief History This is a 37 year old male with a past medical history which includes HTN. Patient had an elective cholecystectomy 09/08/[address] Munroe. Patient reports that he went home after his procedures and felt fine. He reports that 09/09/17 around 1 PM, he took a shower and began to havefevers chills and right shoulder pain. Patient reports that he began he had right upper quadrant abdominal pain which we to his right shoulder, reports that he develop fevers around 6:30 PM 09/09/17, MAXIMUM TEMPERATURE at home was 102, which improved with acetaminophen. Patient did call his surgeon, Dr. Mendoza was covering for Dr. Munroe, recommended the patient come to the emergency room for evaluation. Patient denies chest pain, nausea, vomiting or shortness of breath furthering this episode. Patient reports his is feeling much better today. Patient no longer having fever, chills or pain. Patient reports he continues to have as ore throat and chest congestion. Patient denies productive cough or shortness of breath. CBC/BMP: 09/11/17 0609 09/11/17 0609 Significant Findings Laboratory Tests Test 09/09/17 21:10 09/09/17 22:45 09/09/17 23:59 09/10/17 07:00 White Blood Count 18.5 TH/MM3 (4.0-11.0) 15.1 TH/MM3 (4.0-11.0) Neutrophils (%) (Auto) 77.1 % (16.0-70.0) 78.0 % (16.0-70.0) Monocytes (%) (Auto) 10.3 % (0.0-8.0) 12.2 % (0.0-8.0) Neutrophils # (Auto) 14.3 TH/MM3 (1.8-7.7) 11.7 TH/MM3 (1.8-7.7) Monocytes # (Auto) 1.9 TH/MM3 (0-0.9) 1.8 TH/MM3 (0-0.9) Random Glucose 131 MG/DL (74-106) 116 MG/DL (74-106) Aspartate Amino Transf (AST/SGOT) 38 U/L (15-37) Estimat Glomerular Filtration Rate 80 ML/MIN (>89) Lactic Acid Level 2.1 mmol/L (0.4-2.0) Urine Occult Blood TRACE (NEG) Urine Mucus FEW /lpf (OCC) Lymphocytes (%) (Auto) 8.8 % (9.0-44.0) Calcium Level 8.4 MG/DL (8.5-10.1) Test 09/11/17 06:09 White Blood Count 12.1 TH/MM3 (4.0-11.0) Neutrophils (%) (Auto) 70.2 % (16.0-70.0) Monocytes (%) (Auto) 12.6 % (0.0-8.0) Neutrophils # (Auto) 8.5 TH/MM3 (1.8-7.7) Monocytes # (Auto) 1.5 TH/MM3 (0-0.9) Creatinine 0.57 MG/DL (0.60-1.30) Imaging Last Impressions Chest X-Ray 09/09/[id number] Signed Impressions: Service Date/Time: Saturday, September 09, 2017 20:57 - CONCLUSION: The lungs are clear. No evidence of free intraperitoneal gas on this upright portable exam. Dimas Duran MD Abdomen/Pelvis CT 09/09/172048 Signed Impressions: Service Date/Time: Saturday, September 09, 2017 22:54 - CONCLUSION: 1. Mild edema/fat stranding in the right upper quadrant, nonspecific but duodenitis would be in the differential. Focal colitis of the hepatic flexure possible but I don't really see any wall thickening of the colon to fully substantiate this. 2. Mild atelectasis of both lung bases. 3. Otherwise essentially normal. Patient has had previous cholecystectomy and possible appendectomy. Small cysts of the kidneys are incidentally noted. Patrice Kendall MD PE at Discharge GENERAL: This is a well-nourished, well-developed patient, in no apparent distress. SKIN: healing laparoscopic incisions steri strips intact no erythema or discharge CARDIOVASCULAR: Regular rate and rhythm RESPIRATORY: Clear to auscultation. Breath sounds equal bilaterally. GASTROINTESTINAL: Abdomen soft, nondistended. Tender to palpation RUQ MUSCULOSKELETAL: Extremities without clubbing, cyanosis, or edema. No joint tenderness, effusion, or edema noted. No calf tenderness. Negative Homans sign bilaterally. NEUROLOGICAL: Awake and alert. No focal deficits noted. Motor and sensory grossly within normal limits. Five out of 5 muscle strength in all muscle groups. Normal speech. Hospital Course Fever with abdominal pain s/p cholecystectomy 09/07/[address] Munroe -WBC 18.5 (09/09) -> 15.1 (09/10) ->12.1 (09/11) -Patient given Aztreonam, Metronidazole and Vancomycin in ER -Will DC Vancomycin -possible post op fever possible infection continue Aztreonam and Metronidazole -consult general surgery- cleared for DC -Abdomen/Pelvic reviewed and reveals: Mild edema/fat stranding in the right upper quadrant, nonspecific but duodenitis would be in the differential. Focal colitis of the hepatic flexure possible. Mild atelectasis of both lung bases. Previous cholecystectomy and possible appendectomy. Small cysts of the kidneys are incidentally noted. -CXR reviewed and reveals no acute cardiopulmonary process -BC No growth x 2 day - DC IVF, DC telemetry, patient may shower HTN -continue home amlodipine 5 mg daily, Benazepril 40 mg daily -will hold HCTZ -add Vasotec PRN -monitor BP trend DVT prophylaxis with SCDs case discussed with Dr. Munroe cleared for DC Patient requesting to be discharged DC patient home. Patient to follow up with PCP and general surgery in 1 week Pt Condition on Discharge: Stable Discharge Disposition: Discharge Home Discharge Instructions DIET: Follow Instructions for: As Tolerated, No Restrictions Activities you can perform: See Additionl Instruction Other Activity Instructions: Per surgery Follow up Referrals: PCP Follow-up - [address] Prater Surgical - [address] Munroe New Medications: Levofloxacin (Levaquin) 500 Mg Tablet 500 MG PO DAILY for Infection for 7 Days, #7 TAB 0 Refills Metronidazole (Flagyl) 500 Mg Tab 500 MG PO TID for Infection for 7 Days, #21 TAB 0 Refills Continued Medications: Amlodipine (Amlodipine) 5 Mg Tab 5 MG PO DAILY for Blood Pressure Management, #30 TAB 0 Refills Benazepril (Benazepril) 40 Mg Tab 40 MG PO DAILY for Blood Pressure Management, #30 TAB 0 Refills Hydrochlorothiazide (Hydrochlorothiazide) 25 Mg Tab 25 MG PO DAILY, #30 TAB 0 Refills Deborah Brock Sep 11, 2017 14:18
== END 2017-09-11 15:10 | disposition home or self-care (01) | DRG 864 ==
LOC: NEPE 20:24 → NEDA 23:30 → N07B 09-10 01:03
PROVIDERS: ADMIT Hospitalist; ATTEND Hospitalist
DX: R50.82 Postprocedural fever (principal); I10 Essential (primary) hypertension; J98.11 Atelectasis; K29.80 Duodenitis without bleeding; Z98.890 Other specified postprocedural states
CPT/HCPCS: 71010; 74177; 80048; 80053; 81001; 83605; 83690; 83735; 85025; 85610; 85730; 87040; 87804; 90686; 96361; 96365; 96375; J1885; J2270; J2405; J3370; J7030; J7040; J7050; Q2038; Q9967